=== PATIENT | male | born 1985 | race Two or more races ===

== ENCOUNTER 2022-08-07 07:13 | Outpatient (CLI) | payer OTHER | END 2022-08-07 07:26 | disposition home or self-care (01) | LOC: MRI 07:13 | DX: S16.1XXA Strain of muscle, fascia and tendon at neck level, initial encounter (principal); M54.12 Radiculopathy, cervical region; S39.012A Strain of muscle, fascia and tendon of lower back, initial encounter; M54.16 Radiculopathy, lumbar region; S46.912A Strain of unspecified muscle, fascia and tendon at shoulder and upper arm level, left arm, initial encounter; S46.911A Strain of unspecified muscle, fascia and tendon at shoulder and upper arm level, right arm, initial encounter; S66.911A Strain of unspecified muscle, fascia and tendon at wrist and hand level, right hand, initial encounter; S66.912A Strain of unspecified muscle, fascia and tendon at wrist and hand level, left hand, initial encounter | CPT/HCPCS: 72141; 72148 ==

== ENCOUNTER 2022-08-08 07:11 | Outpatient (CLI) | payer OTHER | END 2022-08-08 07:21 | disposition home or self-care (01) | LOC: MRI 07:11 | DX: S66.911A Strain of unspecified muscle, fascia and tendon at wrist and hand level, right hand, initial encounter (principal); S66.912A Strain of unspecified muscle, fascia and tendon at wrist and hand level, left hand, initial encounter; G56.01 Carpal tunnel syndrome, right upper limb; G56.02 Carpal tunnel syndrome, left upper limb | CPT/HCPCS: 73221 ==

== ENCOUNTER 2022-08-10 07:32 | Outpatient (CLI) | payer OTHER | END 2022-08-10 14:53 | disposition home or self-care (01) | LOC: MRI 07:32 | DX: S66.911A Strain of unspecified muscle, fascia and tendon at wrist and hand level, right hand, initial encounter (principal); S66.912A Strain of unspecified muscle, fascia and tendon at wrist and hand level, left hand, initial encounter; S46.911A Strain of unspecified muscle, fascia and tendon at shoulder and upper arm level, right arm, initial encounter; S46.912A Strain of unspecified muscle, fascia and tendon at shoulder and upper arm level, left arm, initial encounter | CPT/HCPCS: 73221 ==

== ENCOUNTER 2022-08-15 07:01 | Outpatient (CLI) | payer OTHER | END 2022-08-15 07:57 | disposition home or self-care (01) | LOC: MRI 07:01 | DX: S46.911A Strain of unspecified muscle, fascia and tendon at shoulder and upper arm level, right arm, initial encounter (principal); S46.912A Strain of unspecified muscle, fascia and tendon at shoulder and upper arm level, left arm, initial encounter; S66.911A Strain of unspecified muscle, fascia and tendon at wrist and hand level, right hand, initial encounter; S66.912A Strain of unspecified muscle, fascia and tendon at wrist and hand level, left hand, initial encounter | CPT/HCPCS: 73221 ==